=== PATIENT | female | born 1945 | race Caucasian/White ===

== ENCOUNTER 2018-07-17 06:40 | Inpatient (IN) ==
[~2018-07-17 06:40] MED LIST: ceFAZolin 1,000 MG, Sodium Chloride IRRigation 1,000 ML IR ONE
[2018-07-17] MEDS ORDERED: Albuterol 2.5 MG/3 ML NEBULIZER IH ONE (06:59)
[2018-07-17] MEDS ORDERED: CeFAZolin Syr 2,000MG/20 ML 2,000 MG/20 ML SYRINGE IVPB ONE (06:59)
[2018-07-17] MEDS ORDERED: Ringers Solution, Lactated 1,000 ML IVC SCH (07:00)
[2018-07-17] MEDS ORDERED: Albuterol 2.5 MG/3 ML NEBULIZER ONE (07:01)
[2018-07-17] MEDS ORDERED: Famotidine 20 MG/2 ML VIAL IVP ONE (07:34)
[2018-07-17] MEDS ORDERED: *HR* Promethazine 25 MG/ML VIAL IVP PRN (07:34)
[2018-07-17] MEDS ORDERED: *HR* OxyCODONE Immed Rel 5 MG TABLET PO PRN (07:34)
[2018-07-17] MEDS ORDERED: *HR* Labetalol 20 MG/4 ML SYRINGE IVP PRN (07:34)
[2018-07-17] MEDS ORDERED: Acetaminophen IV 1,000 MG/100 ML INFUS..BTL IVPB ONE (07:34)
[2018-07-17] MEDS ORDERED: *HR* HYDROmorphone (PF) 1 MG/ML SYRINGE IVP PRN (07:34)
[2018-07-17] MEDS ORDERED: Ondansetron 4 MG/2 ML VIAL IVP ONE (07:34)
--- NOTE | 2018-07-17 07:36 | Anesthesia Evaluation PreOp ---
Date of Encounter: 07/17/18 Time of Encounter: 07:36 - Past History Planned Operation: endo AAA repair Cardiac History: VT, HTN, Hyperlipidemia, Arrhythmia (Afib), Cardiac Stent (x 4 in 2008. No current chest pain.), Other (AAA, PVD, off eliquis 3 days) Pulmonary History: Former smoker (quit 03/2018. previous 1 ppd 50+ years), COPD (no oxygen requirements or recent steroid use) PATENT AGENT History: TIA (20 years ago no residual symptoms) Other Medical History: Renal (CKD, R renal artery stenosis), GERD Anesthesia History: Past Anesthesia (hysterectomy, EGD, colon, hernia, varicose veins) : No Alcohol Use: none Drug use: unknown Medications and Allergies Ascorbic Acid [Vitamin C] 1,000 mg PO DAILY 12/15/15 [History] Cholecalciferol (D-3) [Vitamin D] 1,000 unit PO DAILY 12/15/15 [History] Potassium Chloride [K-Tab ER] 60 meq PO DAILY 12/15/15 [History] Albuterol Sulfate [Albuterol Inhaler] 1 puff IH Q4HR #1 hfa.aer.[id number] 03/27/18 [Rx] Aspirin 325 mg PO DAILY 04/04/18 [History] Nicotine Patch [Nicoderm] 21 mg TD DAILY 04/04/18 [History] Pravastatin Sodium [Pravachol] 40 mg PO BID 04/04/18 [History] Apixaban [Eliquis] 5 mg PO BID 05/15/18 [History] Umeclidinium [place] [Incruse Ellipta] 1 puff IH DAILY PRN 05/16/18 [History] dilTIAZem HCl [Diltiazem HCl] 120 mg PO DAILY 05/16/18 [History] Sotalol [Betapace] 120 mg PO Q12HR #60 tablet 05/17/18 [Rx] Allergy/AdvReac Type Severity Reaction Status Date / Time atorvastatin AdvReac Cough Verified 07/17/18 07:37 lisinopril AdvReac Cough Verified 07/17/18 07:37 - Meds/Allergy Pre-op Review Medications Reviewed: Yes Allergies Reviewed: Yes Beta Blockers on Current Med List: Yes (metoprolol) If Beta Blockers taken, Date/Time (Last Dose taken): 202907/16/2018 Anesthesia Results - Labs Laboratory Tests 07/04/18 07/04/18 07/04/18 16:47 16:47 16:47 WBC 8.3 Hgb 12.4 Hct 40.6 Plt Count 226 PT 14.9 H INR 1.3 APTT 36.8 H Sodium 140 Potassium 4.3 Chloride 104 Carbon Dioxide 27 BUN 19 Creatinine 1.07 Est GFR (Non-Af Amer) 51 L - Imaging EKG: report reviewed Additional studies: 03/2018 Echocardiogram Impressions: LVEF 70-75%, hyperdynamic LV. Moderate concentric left ventricular hypertrophy. Indeterminate diastolic function. Normal right ventricular structure and function. No significant valvular dysfunction. No evidence of pulmonary hypertension. Stress test 06/2018 Impression: Pharmacologic stress ECG is negative for ischemia at level of heart rate achieved. Gated EF = 73%. Large sized, moderate to severe intensity, fixed inferior and inferolateral perfusion defect suggestive of a prior infarction. Perfusion imaging was negative for ischemia. Abdominal CTA IMPRESSION: 1. 4.9 cm infrarenal abdominal aortic aneurysm which previously measured 3.6 cm in 2013. No evidence of complication at this time, although there is a chronic dissection and a large amount of irregular thrombus in the aneurysm sac. Vascular surgical consultation is recommended, as outlined below. 2. Severe proximal left common iliac artery stenosis. Anesthesia Exam Vital Signs/O2 Sat/Glucose, Most Recent Temp Pulse Resp BP Pulse Ox 98.5 F 71 18 144/63 100 07/17/18 06:58 07/17/18 06:58 07/17/18 06:58 07/17/18 06:58 07/17/18 06:58 Weight: 74 kg NPO (# of Hours): > 8 hr - HEENT Pupil (Motor): Pupils equal Mallampati: II Teeth: Normal - PATENT AGENT LOC: Oriented PATENT AGENT Motor: Normal RUE, Normal LUE, Normal RLE, Normal LLE, Normal Face PATENT AGENT Sensory: Normal: RUE, LUE, RLE, LLE, Face - Cardiac Rhythm: Regular Murmur: None - Pulmonary Breath Sounds: bilateral Clear Respiratory Effort: Symmetrical Anesthesia Assess/Plan ASA Score: 3 Level of consciousness: Cooperative, Oriented Anesthetic Plan: General Monitoring Plan: Standard Monitors, A-Line Recovery Plan: PACU
[2018-07-17] MEDS ORDERED: *HR* Propofol 200 MG/20 ML VIAL IVP ONE (07:38)
[2018-07-17] MEDS ORDERED: *HR* FentaNYL (PF) 100 MCG/2 ML VIAL ONE (07:38)
[2018-07-17] MEDS ORDERED: Heparin 1,000 UNITS/500 mL 3,000 ML ONE (07:38)
[2018-07-17] MEDS ORDERED: Lidocaine -MPF 2% 2 ML VIAL ONE (07:38)
[2018-07-17] MEDS ORDERED: Lidocaine -MPF 4% 5 ML AMPUL ONE (07:38)
[2018-07-17] MEDS ORDERED: *HR* Succinylcholine 200 MG/10 ML VIAL IVP ONE (07:38)
[2018-07-17] MEDS ORDERED: *HR* Rocuronium Bromide 50 MG/5 ML VIAL ONE (07:38)
[2018-07-17] MEDS ORDERED: NiCARdipine 2.5 MG/10 ML Syringe IVPB ONE (07:41)
[2018-07-17] MEDS ORDERED: Isovue-300 150 ML INFUS..BTL ONE (07:42)
[2018-07-17] MEDS ORDERED: *HR* Heparin 5,000 UNIT/ML VIAL ONE (07:44)
[2018-07-17] MEDS ORDERED: Heparin 1,000 UNITS/500 mL 500 ML ONE (07:44)
--- NOTE | 2018-07-17 07:58 | History & Physical Report ---
Date of Encounter: 07/17/18 Time of Encounter: 07:50 24 Hour HP Update - Instructions Instructions: If the History and Physical is less than 30 days old and was completed prior to A.M. admission and or procedure and has NOT been updated on calendar day of procedure please complete this update prior to performing procedure. - Update Patient reports changes in Medical Condition: No Changes in examination, assessment, or condition: No Changes in Medication: No Preop tests/diagnostics Reviewed: Yes Surgery Remains Indicated: Yes Consent for Planned Operative Procedure(s) Verified: Yes - Pre-Operative Checklist Preoperative Checklist Indicated: Yes Prophylactic Antibiotic Ordered: Yes Home Medications Include Beta Jacki: Yes Beta Jacki Taken Today (Day of Surgery): Yes Beta Jacki Taken Yesterday (Day Prior to Surgery): Yes Is VTE Prophylaxis Indicated?: Yes
[2018-07-17] MEDS ORDERED: Dexamethasone 4 MG/ML VIAL ONE (09:09)
[2018-07-17] MEDS ORDERED: Ondansetron 4 MG/2 ML VIAL ONE (09:09)
[2018-07-17] MEDS ORDERED: EPHEDrine 50 MG/ML VIAL ONE (09:28)
[2018-07-17] MEDS ORDERED: Neostigmine Methylsulfate 3 MG/3 ML SYRINGE ONE (10:43)
--- NOTE | 2018-07-17 11:22 | Operative Note ---
Date of procedure: 07/17/18 Pre-op diagnosis: Expanding abdominal aortic aneurysm Post-op diagnosis: same Procedure: Endovascular repair of abdominal aortic aneurysm using an aorto using iliac stent graft Occlusion of right common iliac artery Bilateral femoral artery endarterectomy Left to right femoral-femoral bypass graft with 6 mm PTFE Complications: 0 Anesthesia: GETA Surgeon: Yonis Oconnor Co-Surgeon: Yossi Rincon Was there an commercial assistant present: No Estimated blood loss (cc): 100 Specimen: 0 Condition: stable Disposition: PACU Procedure in Detail: History Mrs. Mcneill is a 73-year-old white female with known abdominal aortic aneurysm. Patient has an expanding aneurysm. She also is on chronic lifelong anticoagulation therapy. Due to the expansion and the need for anticoagulation for cardiac issues was recommended to the patient that she undergo elective repair of the aneurysm. She had preoperative cardiac evaluation and clearance. She now comes to the operating room for repair of this lesion. Procedure After informed consent was obtained the patient was taken to the operating room. General endotracheal anesthesia was established. Arterial line was placed. A timeout protocol was observed. The abdomen groin and upper thighs were sterilely prepped and draped. An oblique incision was made over each groin. Dissection was carried down simultaneously to the common femoral arteries. A 2 team surgical approach was used for this procedure due to the patient's underlying cardiac issues. This also would facilitate intraoperative decision-making and to reduce blood loss. The vessels were patent with an excellent pulse but had significant plaque formation particularly on the right side with a very dense and thick posterior plaque. An 18-gauge needle was then used and the arteries were punctured in a retrograde fashion. A guidewire was inserted followed by a sheath and dilator. The dilator was removed and the sheath was aspirated and flushed. A marker pigtail catheter was advanced over the wire via the right side. A formal aortogram was obtained to evaluate the aorta as well as the iliac vessels. On the preoperative CT scan we identified dense calcific changes involving the aortoiliac segment. In addition the patient had an area of relative stenosis of the distal aorta. Upon angiographic measurements and evaluation was found that this area was inadequate to allow 2 limbs of a stent graft to be successfully placed and so therefore the patient would need an aorto iliac device with the appropriate, compensatory maneuvers to ensure flow into both lower extremities. As the left iliac system had a greater diameter was selected to place the aorta uni-iliac iliac limb via the left side. An Angiogram was obtained for placement adjacent to but inferior to the renal arteries. The device selected was a Medtronic Endurant 2 stent graft system that was 25 x 14 x 102 mm. This device was deployed under fluoroscopic control. The suprarenal stents were also deployed and then the top Was recaptured and the device was removed. A sheath was placed in the left groin and in an antegrade and obtained to identify the location of the left iliac bifurcation. A second component was then placed and this was a 16 x 10 x 124 mm device. This was placed to ensure patency of the left iliac bifurcation. With this done a Reliant balloon was then inserted and the graft was gently dilated. A completion Angiogram was obtained. There was a small type IA leak which was then treated with reapplication of the Reliant balloon. Follow-up completion aortogram demonstrated resolution of this leak and excellent position of the graft with preservation of both renal arteries and the left iliac artery bifurcation. Attention was then directed to the right side. As this was going to be an aorto uni-iliac vascular reconstruction the right common iliac needed to be occluded. Therefore a 14 mm occluding device was then inserted under fluoroscopic control into the proximal right common iliac artery. The right iliac bifurcation was not affected by the deployment of this device. With the endovascular component of this operation complete the wires and catheters were then removed. Attention was then directed to the femoral vessels. As noted earlier the patient has significant plaque disease. Upon performing a formal arteriotomy of the bilateral common femoral arteries were significant plaque formation. Therefore a formal endarterectomy was needed of the common femoral artery and the femoral artery bifurcation. This was accomplished simultaneously. A deep subcutaneous tunnel was created and a 6 mm PTFE graft was passed through the tunnel. The left side was the donor side for the bypass graft and this was anastomosed first. Then the recipient side which was the right side was anastomosed after the graft was cut to length. After appropriate backbleeding and flushing the femoral-femoral graft was opened. The patient then had full pulsatile flow into both lower extremities. There is no hemodynamic distress with this maneuver. The patient tolerated these maneuvers without needing further vasopressor support. The femoral incisions were then irrigated and hemostasis achieved. 0.5% Marcaine was infiltrated into the wounds. The wounds were then closed in layers using absorbable suture. Dry sterile dressings were applied. The patient was reversed from anesthesia next. In the operating room. The patient was then taken from the operating room to the recovery room in stable condition. There were no intraoperative complications.
--- NOTE | 2018-07-17 11:48 | Operative Note ---
Date of procedure: 07/17/18 Pre-op diagnosis: 5cm Abdominal aortic aneurysm, peripheral vascular disease Post-op diagnosis: same Procedure: 1. Endograft repair of abdominal aortic aneurysm with aorto-left femoral graft. 2. Left common femoral to right common femoral artery bypass with PTFE. 3. Right common femoral endarterectomy. 4. Left iliofemoral endarterectomy. Complications: None Anesthesia: GETA Surgeon: Yossi Rincon Co-Surgeon: Yonis Oconnor Was there an patient observation assistant present: No Estimated blood loss (cc): 100 Specimen: None Condition: stable Disposition: PACU Procedure in Detail: Indications: The patient is 73-year-old female with a history of abdominal aortic aneurysm, hypertension, hyperlipidemia and peripheral vascular disease. She is also on oral anticoagulation. The video the size of her aneurysm repair of her aneurysm was recommended to reduce her risk of rupture. Suture: The patient was identified, brought to the operating room and placed in the supine position on the operating room table. After induction of general endotracheal anesthesia, the patient was cleaned and draped in normal sterile fashion. A two surgeon approach was utilized for this procedure in order to minimize anesthetic time and the risks for complications due to the patients comorbid conditions. In addition, a two surgeon approach was used for intraoperative decision making. Oblique incisions were made over both groins sharply. Hemostasis was obtained with electrocautery. Using blunt and sharp and electrocautery dissection, the bilateral common, deep and superficial femoral arteries were dissected circumfer entially and surrounded with Vesseloops. The patient received heparin intravenously. Additional heparin was then given throughout the case to maintain adequate anticoagulation. Bilateral femoral punctures with large-bore needles were performed. DataS[employer]son wires were advanced into the aorta under fluoroscopic view. The needles were exchanged for sheaths. The patient catheter was advanced to the aorta and the wire was removed. An abdominal aortogram was then performed. Angiogram revealed that the distal aorta would not be of sufficient size for a bifurcated graft. Therefore the decision was made to place an aorto using iliac graft. Given the anatomy, the the aorta uni-iliac graft appeared to be best suited for the right iliac artery. A long Pigtail catheter was advanced over the left wire into the aortic arch. A stiff wire was advanced through the pigtail and placed in the aortic arch. The wire was marked on the table for distance. The pigtail catheter was advanced over the right wire and the wire was removed. An angiogram was then performed for graft sizing and positioning. The left sheath was removed and the device was advanced over the wire and positioned in the infrarenal position. The graft was partially deployed in the suprarenal stent was deployed. The remainder of the graft was deployed and the introducer was then recaptured and removed. A sheath was then placed in the left groin. An angiogram was not performed to evaluate for placement of an extension limb. The sheath was removed. An extension limb was then advanced over the wire and deployed. The introducer was removed the sheath was replaced. A Reliant balloon angioplasty was then performed along the and completed endograft and extension. An angiogram revealed a small type I endoleak arising from the proximal aortic graft. Balloon was then reinflated along the proximal graft. A completion angiogram revealed adequate positioning of the endograft without evidence of an endoleak. The wire was then replaced through the pigtail catheter. The pigtail catheter was removed. The right femoral sheath was removed and a 40 mm occlusion sheath and device were advanced over the right wire. The occlusion device was advanced into the proximal right common iliac artery and deployed. The bilateral sheaths and wires were removed. In the vessels were flushed. The vessels were occluded by applying tension to the Vessel loops. A graft was tunneled between the right and left femoral incisions. A longitudinal incision was made in the right common femoral artery. Dense plaque was noted in the right femoral artery and a femoral endarterectomy was performed with a detal freer. Endpoints were inspected and no elevated flaps were noted. The graft was sutured in place with a running 6-0 Prolene. The vessels were flushed through the graft. Heparinized saline was infused into the graft lumen. The graft was clamped with an atraumatic clamp. Flow was restored in the right femoral vessels. Tension was applied to the left femoral artery vessel loops. An arteriotomy was made in the left common femoral artery. At this time, it was noted that nearly occlusive plaque extended from the external iliac atery through the deep and superficial femoral artery origins. The left external iliac artery was dissected underneath the inguinal ligament and surrounded with vessel loops. No antegrade or retrograde flow was noted on release of the loops. Using a dental freer, a left iliofemoral endarterectomy was performed. Upon removal of the plaque, no elevated flaps were noted. Release of the vessel loops revealed collateral antegrade and retrograde flow. The loops were then applied to tension. The distal end of the graft was cut to fit the arterial defect. The graft was anastamosed with a running 6-0 Prolene. Prior to completing the anastamosis, the left femoral vessels were flushed through the graft anastamosis and heparin was infused into the lumen. The anastamosis was completed and flow was restored in the left lower extremity. Thrombin and gelfoam were used at the proximal anastamosis. Polyphasic signals were noted distal to the anastamoses. The wounds were irrigated with antibiotic-containing saline. The bilateral groins incisions were closed with 2-0 Vicryl, 3-0 Vicryl and 4-0 Vicryl. Sterile dressings were applied. The patient was then extubated and taken to the recovery room in stable condition.
--- NOTE | 2018-07-17 12:00 | Anesthesia Evaluation Post Op ---
Date of Encounter: 07/17/18 Time of Encounter: 11:59 - Vital Signs Vital Signs: Vital Signs/O2 Sat/Glucose, Most Recent Temp Pulse Resp BP Pulse Ox 98.3 F 59 14 136/62 98 07/17/18 11:30 07/17/18 11:50 07/17/18 11:50 07/17/18 11:50 07/17/18 11:50 - Lungs Lungs: Clear Ascult./Percussion - Airway Airway: Non-obstructed - Cardiovascular Regular Rate - Mental Status Mental Status: Alert & Oriented, Answers Appropriately - Pain Pain Scale: 1 - Nausea Vomiting Nausea Vomiting: Not Present - Hydration Hydration: Ice chips - Discharge PostOp Status: Transfer Patient to floor
[2018-07-17] MEDS ORDERED: Acetaminophen 325 MG TABLET PO PRN (13:35)
[2018-07-17] MEDS ORDERED: Naloxone 0.4 MG/ML INJ IVP PRN (13:35)
[2018-07-17] MEDS ORDERED: Ondansetron 4 MG/2 ML VIAL IVP PRN (13:35)
[2018-07-17] MEDS: *HR* HYDROcodone/Acet 5/325 mg TABLET PO PRN (14:56)
[2018-07-17] MEDS ORDERED: Diltiazem CD (24hr) 120 MG CAPSULE PO SCH (21:00)
[2018-07-17] MEDS ORDERED: Metoprolol XL (24 HR) Succ 25 MG TAB.ER.24H PO SCH (21:00)
[2018-07-18 04:26] LABS: Hematocrit 33.7 % (35.3-44.9); Hemoglobin 10.5 g/dL (11.5-15.4); Mean Corpuscular HGB Conc 31.2 g/dL (31.6-35.5); Mean Corpuscular Hemoglobin 28.1 pg (28.0-33.3); Mean Corpuscular Volume 90.1 fL (83.0-100.0); Platelet Count 149 K/mcL (140-400); Red Blood Count 3.74 M/mcL (3.82-4.97); Red Cell Distribution Width 14.2 % (11.5-14.5)
[2018-07-18 04:51] LABS: BUN/Creatinine Ratio 16 (6-26); Blood Urea Nitrogen 13 mg/dL (8-23); Calcium 8.8 mg/dL (8.6-10.3); Carbon Dioxide 25 mEq/L (23-29); Chloride 104 mEq/L (98-107); Glucose 193 mg/dL (70-105); Osmolality,Calculated 287 (280-300); Sodium 136 mEq/L (136-145); eGFR For Non-African Americans > 60 (> 60)
[2018-07-18] MEDS ORDERED: Metoprolol XL (24 HR) Succ 25 MG TAB.ER.24H PO SCH (09:00)
[2018-07-18] MEDS ORDERED: Cholecalciferol (D-3) 1,000 UNIT TABLET PO SCH (09:00)
[2018-07-18] MEDS ORDERED: Diltiazem CD (24hr) 120 MG CAPSULE PO SCH (09:00)
[2018-07-18] MEDS ORDERED: Ascorbic Acid 500 MG TABLET PO SCH (09:00)
[2018-07-18] MEDS ORDERED: Nicotine 21 MG PATCH.TD24 TD SCH (09:00)
[2018-07-18] MEDS ORDERED: Aspirin Enteric Coated 81 MG Tablet PO SCH (09:00)
[2018-07-18] MEDS: *HR* HYDROcodone/Acet 5/325 mg TABLET PO PRN (09:40)
[2018-07-18 11:24] VITALS: BP 149/67
--- NOTE | 2018-07-18 12:44 | Discharge Summary ---
Date of Encounter: 07/18/18 Time of Encounter: 12:42 - Discharge Diagnosis (1) AAA (abdominal aortic aneurysm) Priority: Primary Status: Chronic Comments: Patient was found to have expanding abdominal aortic aneurysm in a clinical millieu of anticoagulation for atrial fibrillation. Qualifiers: Presence of rupture: without rupture Qualified Code(s): I71.4 - Abdominal aortic aneurysm, without rupture (2) COPD (chronic obstructive pulmonary disease) Priority: Secondary Status: Chronic Comments: Patient has history of chronic COPD Qualifiers: COPD type: unspecified COPD Qualified Code(s): J44.9 - Chronic obstructive pulmonary disease, unspecified (3) PAF (paroxysmal atrial fibrillation) Priority: Secondary Status: Chronic Comments: Patient has a history of atrial fibrillation. She is on anticoagulation therapy with apixaban. - Hospital Course Hospital course: Ms. Mcneill is a 73 year old female With an expanding abdominal aortic aneurysm. Patient underwent aorta uni-iliac bypass graft and femorofemoral bypass graft. Patient had an uneventful postoperative course. She low-grade fever was thought secondary to atelectasis. Patient was doing well hemodynamically. She was felt fit for discharge on the afternoon of postoperative day #1. Instructions were given in regards to her activity and wound care and medications. Patient is to resume her anticoagulation therapy this afternoon. - Time Spent with Patient Total time spent providing and/or coordinating discharge services: - Discharge Medications Prescriptions: No Action Potassium Chloride [K-Tab ER] 60 meq PO DAILY Ascorbic Acid [Vitamin C] 1,000 mg PO DAILY Nicotine Patch [Nicoderm] 21 mg TD DAILY Pravastatin Sodium [Pravachol] 80 mg PO DAILY Apixaban [Eliquis] 5 mg PO BID Acetaminophen [Tylenol] 325 mg PO Q4H PRN PRN Reason: Pain Aspirin [Lo-Dose Aspirin EC] 81 mg PO QAM Cholecalciferol (Vitamin D3) [Dialyvite Vitamin D] 5,000 units PO DAILY Metoprolol Succinate [Toprol Xl] 25 mg PO QAM [place]-3/Dha/Epa/Fish Oil [Fish Oil 1,000 mg Softgel] 1,000 mg PO QAM Diltiazem CD (24hr) [Cardizem CD] 120 mg PO DAILY Home Medications: Ascorbic Acid [Vitamin C] 1,000 mg PO DAILY 12/15/15 [History] Potassium Chloride [K-Tab ER] 60 meq PO DAILY 12/15/15 [History] Nicotine Patch [Nicoderm] 21 mg TD DAILY 04/04/18 [History] Pravastatin Sodium [Pravachol] 80 mg PO DAILY 04/04/18 [History] Apixaban [Eliquis] 5 mg PO BID 05/15/18 [History] Acetaminophen [Tylenol] 325 mg PO Q4H PRN 07/17/18 [History] Aspirin [Lo-Dose Aspirin EC] 81 mg PO QAM 07/17/18 [History] Cholecalciferol (Vitamin D3) [Dialyvite Vitamin D] 5,000 units PO DAILY 07/17/18 [History] Diltiazem CD (24hr) [Cardizem CD] 120 mg PO DAILY 07/17/18 [History] Metoprolol Succinate [Toprol Xl] 25 mg PO QAM 07/17/18 [History] [place]-3/Dha/Epa/Fish Oil [Fish Oil 1,000 mg Softgel] 1,000 mg PO QAM 07/17/18 [History] Allergies/Adverse Reactions: Allergy/AdvReac Type Severity Reaction Status Date / Time atorvastatin AdvReac Cough Verified 07/17/18 07:37 lisinopril AdvReac Cough Verified 07/17/18 07:37 Date of admission: 07/17/18 13:22 Primary care physician: Yannick Moulton Consults: None Procedure(s) Performed: Abdominal aortic aneurysm repair with aorto iliac past graft, right common iliac artery occlusion, bilateral common femoral artery endarterectomy, and left to right femoral-femoral bypass graft. Discharging clinician: Yonis Oconnor Anticipated date of discharge: 07/18/18 Exam Vital Signs, Last 4 Hours Temp Pulse Resp BP Pulse Ox 07/18/18 11:40 100.3 F H 77 18 149/67 100 07/18/18 11:21 100.3 F H 77 18 149/67 100 General: Present: Conversant, No Apparent Distress HEENT: Present: Atraumatic Neck: Absent: JVD Cardiac: Present: Reg Rate and Rhythm Lungs: Present: Decreased breath sounds Neuro: Present: Alert and responsive Abdomen: Present: Soft, Non-tender Vascular: Present: Surgical incisions (Femoral incisions are clean and dry with dressings intact.), Other (Feet are warm and pink with Doppler signals.) Skin: Present: No rashes noted on visualized skin - Patient Status Disposition: Home, Self-Care Condition: Good Functional capacity at discharge: independent ambulation Overall status at discharge: patient is progressing back to baseline - Discharge Instructions Instructions: Endovascular Abdominal Aortic Aneurysm Repair (DC) Follow Up With: Rachna Klein DO [Primary Care Provider] - 07/25/18 9:30 am Yonis Oconnor MD [Partnered Physician] - 08/08/18 9:45 am Additional Instructions: Patient may ambulate inside and outside. No lifting greater than 10 pounds. No manual labor. No automobile driving. Removed surgical dressings tomorrow. Keep surgical sites dry for total 5 days following surgery. Resume usual home medications. Resume anticoagulation therapy with this afternoon's dose at home. Using incentive spirometer 10 times an hour while awake at home for the next 2 weeks. - Diet and Activity Activity: increase activity as tolerated
== END 2018-07-18 14:12 | disposition home or self-care (01) | DRG 269 ==
LOC: SAMDAY 06:40 → 2NNU 13:22
PROVIDERS: ADMIT Surgery Vascular Surgery; ATTEND Surgery Vascular Surgery
PROC: VASFFBG (ICD-10-PCS; 2018-07-17 08:15)

== ENCOUNTER 2019-09-06 00:28 | Observation (INO) ==
[2019-09-06] MEDS ORDERED: *HR* HYDROmorphone (PF) 1 MG/ML SYRINGE IM ONE (00:46)
[2019-09-06] MEDS ORDERED: Isovue-370 500 ML BOTTLE IVP ONE (01:01)
[2019-09-06 01:06] LABS: Basophils % 0.1 %; Eosinophils % 0.1 %; Hematocrit 40.4 % (35.3-44.9); Hemoglobin 12.4 g/dL (11.5-15.4); Immature Granulocytes % 0.7 % (0-4); Lymphocytes # 1.7 K/mcL (0.6-4.6); Lymphocytes % 10.6 %; Mean Corpuscular HGB Conc 30.7 g/dL (31.6-35.5); Mean Corpuscular Hemoglobin 28.6 pg (28.0-33.3); Mean Corpuscular Volume 93.3 fL (83.0-100.0); Mean Platelet Volume 9.9 fL (9.4-12.4); Monocytes # 0.9 K/mcL (0.0-1.3); Monocytes % 5.5 %; Neutrophils # 13.4 K/mcL (1.6-8.9); Platelet Count 163 K/mcL (140-400); Red Blood Count 4.33 M/mcL (3.82-4.97); Red Cell Distribution Width 14.6 % (11.5-14.5); White Blood Count 16.1 K/mcL (4.3-11.1)
[2019-09-06 01:23] LABS: BUN/Creatinine Ratio 15 (6-26); Blood Urea Nitrogen 15 mg/dL (8-23); Calcium 8.5 mg/dL (8.6-10.3); Carbon Dioxide 27 mEq/L (23-29); Chloride 104 mEq/L (98-107); Glucose 140 mg/dL (70-105); Osmolality,Calculated 289 (280-300); Sodium 138 mEq/L (136-145); eGFR For African Americans > 60 (> 60); eGFR For Non-African Americans 54 (> 60)
[2019-09-06 02:11] LABS: Bilirubin,Urine Negative (Negative); Blood,Urine Trace (Negative); Clarity,Urine Clear (Clear); Color,Urine Colorless (Yellow); Glucose,Urine (UA) Normal (Normal); Ketones,Urine Negative (Negative); Leukocyte Esterase,Urine Negative (Negative); Mucus,Urine Few per lpf (None-Few); Nitrite,Urine Negative (Negative); Protein,Urine Negative (Neg-Trace); RBC,Urine 0-3 per hpf (0-3); Specific Gravity,Urine 1.012 (1.010-1.025); Squamous Epithelial Cell,Urine Few per hpf (None-Few); Urobilinogen,Urine Normal (Normal); WBC,Urine 0-3 per hpf (0-3)
[2019-09-06] MEDS ORDERED: *HR* HYDROmorphone 2 MG/ML SYRINGE IVP ONE (02:17)
[2019-09-06] MEDS ORDERED: diazePAM 10 MG TABLET PO PRN (04:06)
[2019-09-06] MEDS: *HR* OxyCODONE Immed Rel 5 MG TABLET PO PRN ×2 (04:16→10:14)
[2019-09-06] MEDS ORDERED: Naloxone 0.4 MG/ML INJ IVP PRN (05:26)
[2019-09-06] MEDS: Nicotine 21 MG PATCH.TD24 TD SCH ×2 (05:52→09:57)
[2019-09-06 07:39] LABS: Hematocrit 37.3 % (35.3-44.9); Hemoglobin 11.4 g/dL (11.5-15.4); Mean Corpuscular HGB Conc 30.6 g/dL (31.6-35.5); Mean Corpuscular Hemoglobin 28.6 pg (28.0-33.3); Mean Corpuscular Volume 93.5 fL (83.0-100.0); Platelet Count 144 K/mcL (140-400); Red Blood Count 3.99 M/mcL (3.82-4.97); Red Cell Distribution Width 14.7 % (11.5-14.5); White Blood Count 14.7 K/mcL (4.3-11.1)
[2019-09-06 07:41] LABS: INR 1.2; Prothrombin Time 13.6 Seconds (9.4-12.1)
[2019-09-06 09:00] LABS: BUN/Creatinine Ratio 17 (6-26); Blood Urea Nitrogen 14 mg/dL (8-23); Calcium 8.7 mg/dL (8.6-10.3); Carbon Dioxide 28 mEq/L (23-29); Chloride 103 mEq/L (98-107); Glucose 131 mg/dL (70-105); Osmolality,Calculated 288 (280-300); Phosphorous 2.5 mg/dL (2.7-4.5); Sodium 138 mEq/L (136-145); eGFR For African Americans > 60 (> 60); eGFR For Non-African Americans > 60 (> 60)
[2019-09-06] MEDS: Metoprolol XL (24 HR) Succ 25 MG TAB.ER.24H PO SCH (09:57)
[2019-09-06] MEDS: Apixaban 5 MG TABLET PO SCH ×2 (09:58→21:06)
[2019-09-06] MEDS: Aspirin Enteric Coated 325 MG Tablet PO SCH (09:58)
[2019-09-06] MEDS: DilTIAZem CD (24hr) 120 MG CAP.ER.24H PO SCH (09:58)
[2019-09-06] MEDS ORDERED: Acetaminophen 325 MG TABLET PO PRN (11:14)
[2019-09-06] MEDS ORDERED: *HR* HYDROcodone/Acet 5/325 mg TABLET PO PRN (11:14)
[2019-09-06] MEDS ORDERED: Ondansetron 4 MG/2 ML VIAL IVP PRN (11:14)
[2019-09-06] MEDS ORDERED: diazePAM 5 MG TABLET PO PRN (11:21)
[2019-09-06] MEDS: tiZANidine 4 MG TABLET PO SCH ×3 (12:38→21:07)
[2019-09-06] MEDS: Gabapentin 300 MG CAPSULE PO SCH ×3 (12:38→21:07)
[2019-09-06 13:14] LABS: Bilirubin,Urine Negative (Negative); Blood,Urine Moderate (Negative); Clarity,Urine Clear (Clear); Color,Urine Light-Yellow (Yellow); Glucose,Urine (UA) Normal (Normal); Ketones,Urine Negative (Negative); Leukocyte Esterase,Urine Trace (Negative); Mucus,Urine Few per lpf (None-Few); Nitrite,Urine Negative (Negative); PH,Urine 5.5 pH Units (5.0-8.0); Protein,Urine Trace mg/dL (Neg-Trace); RBC,Urine 30-50 per hpf (0-3); Squamous Epithelial Cell,Urine Few per hpf (None-Few); Urobilinogen,Urine Normal (Normal)
[2019-09-06] MEDS ORDERED: *HR* Labetalol 20 MG/4 ML SYRINGE IVP PRN (14:53)
[2019-09-06] MEDS: Ipratropium/Albuterol Neb 3 ML IH SCH ×4 (15:25→23:16)
[2019-09-06] MEDS: Acetaminophen IV 1,000 MG/100 ML BAG IVPB SCH (17:37)
[2019-09-06] MEDS ORDERED: Benzonatate 100 MG CAPSULE PO PRN (19:48)
[2019-09-06] MEDS ORDERED: Potassium Phosphate 44 MEQ in 0.9 % Sodium Chloride 250 ML IVPB ONE (19:50)
[2019-09-06] MEDS: Sennosides 8.6 MG TABLET PO SCH (21:07)
[2019-09-07 02:24] LABS: Basophils % 0.1 %; Eosinophils # 0.1 K/mcL (0.0-0.6); Eosinophils % 0.7 %; Hematocrit 35.4 % (35.3-44.9); Hemoglobin 10.9 g/dL (11.5-15.4); Immature Granulocytes % 0.6 % (0-4); Lymphocytes # 1.7 K/mcL (0.6-4.6); Lymphocytes % 16.1 %; Mean Corpuscular HGB Conc 30.8 g/dL (31.6-35.5); Mean Corpuscular Hemoglobin 28.8 pg (28.0-33.3); Mean Corpuscular Volume 93.7 fL (83.0-100.0); Mean Platelet Volume 10.2 fL (9.4-12.4); Monocytes # 0.8 K/mcL (0.0-1.3); Monocytes % 7.7 %; Neutrophils # 7.7 K/mcL (1.6-8.9); Platelet Count 131 K/mcL (140-400); Red Blood Count 3.78 M/mcL (3.82-4.97); Red Cell Distribution Width 14.7 % (11.5-14.5); Segmented Neutrophils % 74.8 %; White Blood Count 10.3 K/mcL (4.3-11.1)
[2019-09-07 02:40] LABS: BUN/Creatinine Ratio 15 (6-26); Blood Urea Nitrogen 13 mg/dL (8-23); Calcium 8.2 mg/dL (8.6-10.3); Carbon Dioxide 30 mEq/L (23-29); Chloride 102 mEq/L (98-107); Glucose 140 mg/dL (70-105); Osmolality,Calculated 288 (280-300); Potassium 3.8 mEq/L (3.5-5.1); Sodium 138 mEq/L (136-145); eGFR For African Americans > 60 (> 60); eGFR For Non-African Americans > 60 (> 60)
[2019-09-07] MEDS: Ipratropium/Albuterol Neb 3 ML IH SCH ×5 (03:37→20:22)
[2019-09-07] MEDS: Acetaminophen IV 1,000 MG/100 ML BAG IVPB SCH ×3 (04:01→12:11)
[2019-09-07] MEDS: Apixaban 5 MG TABLET PO SCH ×2 (07:49→21:39)
[2019-09-07] MEDS: DilTIAZem CD (24hr) 120 MG CAP.ER.24H PO SCH (07:50)
[2019-09-07] MEDS: Gabapentin 300 MG CAPSULE PO SCH ×3 (07:50→21:39)
[2019-09-07] MEDS: Metoprolol XL (24 HR) Succ 25 MG TAB.ER.24H PO SCH (07:51)
[2019-09-07] MEDS: Nicotine 21 MG PATCH.TD24 TD SCH (07:51)
[2019-09-07] MEDS: Aspirin Enteric Coated 325 MG Tablet PO SCH (07:51)
[2019-09-07] MEDS: tiZANidine 4 MG TABLET PO SCH ×4 (09:01→21:39)
[2019-09-07] MEDS: predniSONE 20 MG TABLET PO SCH (12:09)
[2019-09-07] MEDS ORDERED: *HR* OxyCODONE Immed Rel 5 MG TABLET PO PRN (13:45)
[2019-09-07] MEDS: Sennosides 8.6 MG TABLET PO SCH (21:39)
[2019-09-08] MEDS: Ipratropium/Albuterol Neb 3 ML IH SCH ×7 (00:15→23:41)
[2019-09-08 06:55] LABS: Basophils % 0.1 %; Eosinophils % 0.1 %; Hematocrit 35.9 % (35.3-44.9); Immature Granulocytes % 0.9 % (0-4); Lymphocytes % 9.2 %; Mean Corpuscular HGB Conc 30.6 g/dL (31.6-35.5); Mean Corpuscular Hemoglobin 28.2 pg (28.0-33.3); Mean Corpuscular Volume 92.1 fL (83.0-100.0); Mean Platelet Volume 10.4 fL (9.4-12.4); Monocytes # 0.6 K/mcL (0.0-1.3); Monocytes % 5.3 %; Neutrophils # 9.2 K/mcL (1.6-8.9); Platelet Count 161 K/mcL (140-400); Red Cell Distribution Width 14.2 % (11.5-14.5); Segmented Neutrophils % 84.4 %; White Blood Count 10.9 K/mcL (4.3-11.1)
[2019-09-08 07:16] LABS: BUN/Creatinine Ratio 21 (6-26); Blood Urea Nitrogen 14 mg/dL (8-23); Calcium 8.9 mg/dL (8.6-10.3); Carbon Dioxide 29 mEq/L (23-29); Chloride 104 mEq/L (98-107); Glucose 162 mg/dL (70-105); Osmolality,Calculated 290 (280-300); Potassium 3.9 mEq/L (3.5-5.1); Sodium 138 mEq/L (136-145); eGFR For African Americans > 60 (> 60); eGFR For Non-African Americans > 60 (> 60)
[2019-09-08] MEDS: Nicotine 21 MG PATCH.TD24 TD SCH (07:56)
[2019-09-08] MEDS: tiZANidine 4 MG TABLET PO SCH ×4 (07:58→20:19)
[2019-09-08] MEDS: predniSONE 20 MG TABLET PO SCH (07:58)
[2019-09-08] MEDS: Metoprolol XL (24 HR) Succ 25 MG TAB.ER.24H PO SCH (07:59)
[2019-09-08] MEDS: Gabapentin 300 MG CAPSULE PO SCH ×3 (07:59→20:19)
[2019-09-08] MEDS: Aspirin Enteric Coated 325 MG Tablet PO SCH (07:59)
[2019-09-08] MEDS: Apixaban 5 MG TABLET PO SCH ×2 (08:00→20:18)
[2019-09-08] MEDS: DilTIAZem CD (24hr) 120 MG CAP.ER.24H PO SCH (08:00)
[2019-09-08] MEDS: Sennosides 8.6 MG TABLET PO SCH (20:19)
[2019-09-09] MEDS: Ipratropium/Albuterol Neb 3 ML IH SCH ×3 (04:25→11:25)
[2019-09-09] MEDS: Nicotine 21 MG PATCH.TD24 TD SCH (07:35)
[2019-09-09] MEDS: Apixaban 5 MG TABLET PO SCH (07:35)
[2019-09-09] MEDS: predniSONE 20 MG TABLET PO SCH (07:36)
[2019-09-09] MEDS: DilTIAZem CD (24hr) 120 MG CAP.ER.24H PO SCH (07:36)
[2019-09-09] MEDS: tiZANidine 4 MG TABLET PO SCH ×2 (07:36→12:11)
[2019-09-09] MEDS: Metoprolol XL (24 HR) Succ 25 MG TAB.ER.24H PO SCH (07:36)
[2019-09-09] MEDS: Aspirin Enteric Coated 325 MG Tablet PO SCH (07:36)
[2019-09-09] MEDS: Gabapentin 300 MG CAPSULE PO SCH (07:36)
[2019-09-09 11:00] VITALS: BP 173/72
== END 2019-09-09 14:48 | disposition home health service (06) ==
LOC: EMEROOARM 00:28 → 3NENU 00:28 → SUATTDRO 02:51 → 3NENU 03:20
PROVIDERS: ADMIT Orthopaedic Surgery Orthopaedic Surgery of the Spine; ATTEND Family Medicine